=== PATIENT | female | born 1980 | race Caucasian/White ===

== ENCOUNTER 2017-03-10 06:09 | Day surgery (SDC) | payer BC ==
[~2017-03-10] VITALS: Ht 160 cm; Wt 63.4 kg
[2017-03-10] VITALS (8 sets, daily range): BP systolic 101–114; BP diastolic 62–75; PULSE 68; RESP 14–25; Ht 160 cm; Wt 63.4 kg
[2017-03-10] MEDS ORDERED: VITAMINS (07:28)
[2017-03-10] MEDS ORDERED: [UNRECOGNIZED DRUG - REMARK] (07:28)
[2017-03-10] MEDS ORDERED: MIDAZOLAM 1 MG/ML 2 ML INJ ONE ×2 (08:52)
[2017-03-10] MEDS ORDERED: FENTAnyl 50 MCG/ML VIAL ONE (08:52)
--- NOTE | 2017-03-10 13:14 | GILP ---
DATE OF PROCEDURE: PROCEDURE: Colonoscopy. INDICATION: A 36-year-old female undergoing this procedure for rectal bleeding and constipation. T he purpose is to evaluate the colon and find out the source of bleeding. INFORMED CONSENT: The risk of the procedure, related and unrelated complications, anesthetic risks, alternatives discussed, and informed consent was obtained. DESCRIPTION OF PROCEDURE: The patient was brought to the GI lab, sedated with Versed 4 mg and fenta nyl 75. After optimal sedation, digital examination done. Sphincter tone was normal. Scope was th en passed with much ease into rectum and advanced slowly all the way into the cecum. Appendiceal IC valve identified. While coming out, mucosa thoroughly inspected. She had a collection of opaque l iquidy stool at different angulation, but grossly it was normal. Retroversion done, internal hemorr hoids identified. The patient also has external hemorrhoids. IMPRESSION: Small hemorrhoid is the cause of bleeding. PLAN: To have a Sitz bath, continue high-fiber diet, MiraLax, and if the bleeding persists, then wi ll give her Anusol-HC suppository. Dictated By: MICHAEL BERMUDEZ/DERRICK Conf#: [id number] DID#: [id number] CC: JOSE ALFREDO KINGSTON MD;*EndCC*
== END 2017-03-10 10:11 | disposition home or self-care (01) ==
LOC: GIL 06:09
PROVIDERS: ATTEND Internal Medicine Gastroenterology
DX: K59.00 Constipation, unspecified (principal); K64.8 Other hemorrhoids
CPT/HCPCS: 45378; 84703; J2250; J3010; Z7610